=== PATIENT | male | born 1985 | race American Indian/Alaskan Native ===

== ENCOUNTER 2016-11-29 21:04 | Emergency (ER) | payer SELFPAY ==
[2016-11-29] MEDS ORDERED: Sodium Chloride 0.9% 1,000 ML IV ONE (22:19)
--- NOTE | 2016-11-29 22:22 | C.PDOC ---
History Of Present Illness 31 y/o male presents to the ED with complains of productive cough with brown sputum x3 days and associated chest pain with coughing or deep breaths. Pt also reports subjective fever. Denies SOB, vomiting, sore throat, or any other complaints. Chief Complaint (Nursing): Chest Pain History Per: Patient History/Exam Limitations: no limitations Onset/Duration Of Symptoms: Days Current Symptoms Are (Timing): Still Present Severity: Mild Quality: "Pain" Exacerbating Factors: Deep Breathing Recent travel outside of the [place]: No Past Medical History Reviewed: Historical Data, Nursing Documentation, Vital Signs Vital Signs: Last Vital Signs Temp 97.7 F 11/30/16 04:23 Pulse 66 11/30/16 04:23 Resp 18 11/30/16 04:23 BP 115/77 11/30/16 04:23 Pulse Ox 98 11/30/16 04:23 Family History: States: Unknown Family Hx - Social History Hx Tobacco Use: No Hx Alcohol Use: No Hx Substance Use: No - Immunization History Hx Tetanus Toxoid Vaccination: No Hx Influenza Vaccination: No Hx Pneumococcal Vaccination: No Review Of Systems Except As Marked, All Systems Reviewed And Found Negative. Constitutional: Positive for: Fever ENT: Negative for: Throat Pain Cardiovascular: Positive for: Chest Pain Respiratory: Positive for: Cough. Negative for: Shortness of Breath Gastrointestinal: Negative for: Vomiting Physical Exam - Physical Exam Appears: Non-toxic, No Acute Distress Skin: Warm, Dry, No Rash Head: Atraumatic, Normacephalic Oral Mucosa: Moist Throat: Normal, No Erythema Neck: Normal ROM, Supple Chest: Symmetrical, Tenderness (anterior chest wall) Cardiovascular: Rhythm Regular, No Murmur Respiratory: Normal Breath Sounds, No Rales, No Rhonchi, No Wheezing Gastrointestinal/Abdominal: Soft Extremity: Bilateral: Atraumatic Neurological/Psych: Oriented x3, Normal Speech ED Course And Treatment - Laboratory Results Result Diagrams: 11/29/16 22:58 11/29/16 22:58 O2 Sat by Pulse Oximetry: 98 (on room air) Pulse Ox Interpretation: Normal - CT Scan/US CTA chest Other Rad Studies (CT/US): Read By Radiologist, Radiology Report Reviewed CT/US Interpretation: EXAM: CT Angiography Chest With Intravenous Contrast. CLINICAL HISTORY: 31 years old, male; Pain; Chest pain and other: Elevated d- dimer; Additional info: Chest. pain/elevated d-dimer. TECHNIQUE: Axial computed tomographic angiography images of the chest with intravenous contrast using. pulmonary embolism protocol. This CT exam was performed using one or more of the following dose. reduction techniques: automated exposure control, adjustment of the mA and/or kV according to. patient size, and/or use of iterative reconstruction technique. Coronal and sagittal reformatted images were created and reviewed. COMPARISON: No relevant prior studies available. FINDINGS: Pulmonary arteries: No evidence for acute pulmonary embolism. Aorta : Thoracic aorta is unremarkable. No thoracic aortic aneurysm. Lungs: The visualized portions of the lung apices are normal. There is minimal bibasilar atelectasis. No mass. Pleural space: The lungs are free of dense consolidation , pleural effusion or pneumothorax. Heart: The heart is not enlarged. No significant pericardial effusion. No evidence of RV dysfunction. Mediastinum: The esophagus is normal. Thyroid: Thyroid is normal in size and position. Bones/joints: There are mild degenerative changes present. No acute fracture. No dislocation. Soft tissues: Unremarkable. Lymph nodes: There is no axillary adenopathy. No mediastinal or hilar adenopathy. There is some. top normal left hilar nodes without evelyn adenopathy. Spleen: The visualized spleen is enlarged measuring 13.4 CM anteroposterior. Stomach and bowel: Incidentally noted is mild colonic constipation. Upper abdomen: Scans through the upper abdomen demonstrate no definite acute abnormalities. IMPRESSION: 1. No evidence for acute pulmonary embolism. 2. The lungs are free of dense consolidation, pleural effusion or pneumothorax. 3. Additional incidental and/ or chronic findings as described. Thank you for allowing us to participate in the care of your patient. Dictated and Authenticated by: Ian Olivarez MD. 11/30/2016 3:39 AM Eastern Time ([place] & [place]) Medical Decision Making Medical Decision Making: Plan: EKG, labs, CXR, IV fluids, toradol Disposition - Disposition Referrals: [facility] [place] [Outside] Disposition: HOME/ ROUTINE Disposition Time: 05:38 Condition: STABLE Prescriptions: Naproxen [Naprosyn Tab] 375 mg PO TIDPC #20 tab Instructions: Chest Wall Pain (ED) - POA Present On Arrival: None - Clinical Impression Clinical Impression: Non-cardiac chest pain - Scribe Statement The provider has reviewed the documentation as recorded by the Heriberto Schneider Provider Attestation: All medical record entries made by the Royceibvinay were at my direction and personally dictated by me. I have reviewed the chart and agree that the record accurately reflects my personal performance of the history, physical exam, medical decision making, and the department course for this patient. I have also personally directed, reviewed, and agree with the discharge instructions and disposition.
[2016-11-29] MEDS ORDERED: Sodium Chloride 0.9% 1,000 ML ONE (22:31)
[2016-11-29 23:03] LABS: BASO % 0.4 % (0.0-2.0); EOS # 0.3 K/uL (0.0-0.7); EOS % 4.4 % (0.0-4.0); HEMATOCRIT 45.8 % (35.0-51.0); LYMPH % 52.5 % (20.0-40.0); MEAN CELL VOLUME 85.8 fL (80.0-94.0); MEAN CORPUSCULAR HGB CONC 32.6 g/dL (33.0-37.0); MEAN PLATELET VOLUME 10.5 fL (7.2-11.7); MONO # 0.7 K/uL (0.0-0.8); MONO % 11.3 % (0.0-10.0); RED CELL DISTRIBUTION WIDTH 13.8 % (11.5-14.5); WHITE BLOOD COUNT 5.7 K/uL (4.8-10.8)
[2016-11-29 23:10] LABS: CHLORIDE 97 mmol/L (98-107); POTASSIUM 3.5 mmol/L (3.6-5.2); SODIUM 139 mmol/L (132-148)
[2016-11-29 23:12] LABS: ALB/GLOB RATIO 1.3 (1.0-2.1); ALKALINE PHOSPHATASE 60 U/L (38-126); AST/SGOT 35 U/L (17-59); BILIRUBIN,TOTAL 0.2 mg/dL (0.2-1.3); CARBON DIOXIDE 27 mmol/L (22-30); GFR AFRICAN-AMERICAN > 60; TOTAL PROTEIN 7.3 g/dL (6.3-8.3)
[2016-11-29 23:13] LABS: ALT/SGPT 55 U/L (21-72); BLOOD UREA NITROGEN 16 mg/dL (9-20); CALCIUM 7.9 mg/dl (8.6-10.4); GLUCOSE,RANDOM 88 mg/dL (75-110)
[2016-11-30] MEDS ORDERED: Iodixanol 320 MG/ML 100 ML BOTTLE IV ONE (01:48)
[2016-11-30 05:52] VITALS: BP 103/71; PULSE 64; RESP 20; TEMP 97.5; O2SAT 100
--- NOTE | 2016-11-30 09:12 | RAD ---
HISTORY: chest pain COMPARISON: 02/11/2013 TECHNIQUE: Chest PA and lateral FINDINGS: LUNGS: No active pulmonary disease. PLEURA: No significant pleural effusion identified. No pneumothorax apparent. CARDIOVASCULAR: Normal. OSSEOUS STRUCTURES: No significant abnormalities. VISUALIZED UPPER ABDOMEN: Normal. OTHER FINDINGS: None. IMPRESSION: No active disease.
--- NOTE | 2016-11-30 09:14 | CT ---
CT chest pulmonary angiogram History: Chest pain. Elevated D-dimer. Comparison: None available. Technique: Axial computed tomographic angiographic images of the chest were performed with intravenous contrast utilizing pulmonary embolism protocol. Subsequently, sagittal coronal reformatted images as well as sagittal coronal MIPS reformatted images were obtained. Findings: Motion artifact somewhat limits evaluation. No evidence for acute central pulmonary embolism. More limited evaluation of the subsegmental and distal segmental branches. For example on series 2, image 43 within a subsegmental branch of the right upper lobe pulmonary artery a questionable filling defect likely represents some motion artifact. Visualized aorta is preserved. Right lung: Atelectasis at the lung base. Left lung: Atelectasis at the lung base. Heart appears preserved. Thyroid is preserved. Degenerative changes in the visualized osseous structures. Spleen is prominent measuring up to 13.4 centimeters in AP diameter. Fecal retention in the colon. Impression: Motion artifact somewhat limits evaluation. No evidence for acute central pulmonary embolism. More limited evaluation of the subsegmental and distal segmental branches. For example on series 2, image 43 within a subsegmental branch of the right upper lobe pulmonary artery a questionable filling defect likely represents some motion artifact. Additional findings as above. These findings were preliminarily reported at 3:39 a.m. on 11/30/[address] Ian Olivarez from [facility].
--- NOTE | 2016-11-30 21:27 | CARD ---
APPROVED REPORT EKG Measurement Heart [id number] <Conclusion> Sinus rhythm with marked sinus arrhythmia Otherwise normal ECG
== END 2016-11-30 06:02 | disposition home or self-care (01) ==
LOC: C.ER 21:04
DX: R07.89 Other chest pain (principal)
CPT/HCPCS: 71020; 71275; 80053; 84484; 85025; 85378; 93005; 96374; 99285; J1885; J7040; Q9967